=== PATIENT | male | born 1950 | race Caucasian/White ===

== ENCOUNTER 2017-04-17 04:56 | Emergency (ER) | payer MEDICARE ==
[~2017-04-17] VITALS: Ht 170.2 cm; Wt 78.1 kg
[~2017-04-17 04:56] MED LIST: DICL75TA2 PO; LOSA1TAB22 PO
[2017-04-17 04:58] VITALS: BP 178/90
== END 2017-04-17 05:43 | disposition home or self-care (01) ==
LOC: ED 05:35
DX: M54.12 Radiculopathy, cervical region (principal); I10 Essential (primary) hypertension
CPT/HCPCS: 93005; 99283

== ENCOUNTER 2017-04-21 07:40 | Emergency (ER) | payer MEDICARE ==
[~2017-04-21] VITALS: Ht 170.2 cm; Wt 77.2 kg
[2017-04-21 08:25] LABS: BASOPHILS # (AUTO) 0.03 x10^3/uL (0-0.1); BASOPHILS % (AUTO) 0 % (0-1); EOSINOPHILS # (AUTO) 0.04 x10^3/uL (0-0.4); EOSINOPHILS % (AUTO) 1 % (1-7); LYMPHOCYTES # (AUTO) 1.21 x10^3/uL (1-3.4); LYMPHOCYTES % (AUTO) 16 % (22-44); MD NO; MEAN CORPUSCULAR HEMOGLOBIN 30.6 pg (27.5-34.5); MEAN CORPUSCULAR HGB CONC 33.9 g/dL (33.2-36.2); MEAN CORPUSCULAR VOLUME 90.3 fL (81-97); MEAN PLATELET VOLUME 7.6 fL (7.4-10.4); MONOCYTES # (AUTO) 1.12 x10^3/uL (0.2-0.8); MONOCYTES % (AUTO) 14 % (2-9); NEUTROPHILS # (AUTO) 5.38 x10^3/uL (1.8-6.8); NEUTROPHILS % (AUTO) 69 % (42-75); PLATELET COUNT 249 x10^3/uL (130-400); RED BLOOD COUNT 5.06 x10^6/uL (4.38-5.82); RED CELL DISTRIBUTION WIDTH 12.6 % (9.4-14.8)
[2017-04-21] MEDS ORDERED: SODIUM CHLORIDE 0.9% 1,000ML IVBOLUS ONE (08:30)
[2017-04-21] MEDS ORDERED: SODIUM CHLORIDE FLUSH 10ML SYR IVF ONE (08:30)
[2017-04-21 08:35] LABS: ANION GAP 9 mmol/L (5-15); CALCIUM 8.1 mg/dL (8.5-10.1); CHLORIDE 103 mmol/L (98-107); CREATININE 1.66 mg/dL (0.7-1.3)
[2017-04-21 08:36] LABS: ALANINE AMINOTRANSFERASE 30 U/L (12-78)
[2017-04-21 08:38] LABS: ALKALINE PHOSPHATASE 60 U/L (45-117); BILIRUBIN,TOTAL 0.9 mg/dL (0.2-1.0); CREATINE KINASE, TOTAL 52 U/L (39-308); TOTAL PROTEIN 7.6 g/dL (6.4-8.2)
[2017-04-21 09:19] LABS: MICROSCOPIC NOT IND
[2017-04-21 09:20] LABS: CULTURE INDICATED? NO
[2017-04-21] MEDS ORDERED: HYDROcodone/APAP 5/325 TABLET PO ONE (10:00)
[2017-04-21] MEDS ORDERED: IBUPROFEN 200 MG TABLET PO ONE (10:00)
[2017-04-21] MEDS ORDERED: IBUPROFEN 200 MG TABLET ONE (10:01)
[2017-04-21] MEDS ORDERED: HYDROcodone/APAP 5/325 TABLET ONE (10:01)
[2017-04-21 10:36] VITALS: BP 143/95
[2017-04-22] MEDS ORDERED: ONDA4TAB10 PO (23:36)
[2017-04-22] MEDS ORDERED: [UNRECOGNIZED DRUG - OTHER] (23:36)
[2017-04-22] MEDS ORDERED: GABA300C10 PO (23:36)
== END 2017-04-21 10:38 | disposition home or self-care (01) ==
LOC: ED 09:51
DX: B02.33 Zoster keratitis (principal); M79.1 Myalgia; G47.00 Insomnia, unspecified; G43.909 Migraine, unspecified, not intractable, without status migrainosus; I10 Essential (primary) hypertension
CPT/HCPCS: 36415; 80053; 81003; 82550; 85025; 93005; 99285; J7030

== ENCOUNTER 2017-04-22 22:07 | Emergency (ER) | payer MEDICARE ==
[~2017-04-22] VITALS: Ht 170.2 cm; Wt 77.7 kg
[2017-04-22 22:10] VITALS: BP 144/87
[2017-04-22] MEDS ORDERED: ONDA4TAB10 PO (23:36)
[2017-04-22] MEDS ORDERED: [UNRECOGNIZED DRUG - OTHER] (23:36)
[2017-04-22] MEDS ORDERED: GABA300C10 PO (23:36)
[2017-04-22] MEDS ORDERED: PROMETHAZINE 25 MG/ML, 1ML ONE (23:42)
[2017-04-22] MEDS ORDERED: DEXAMETHASONE 4 MG/ML, 1ML ONE (23:42)
[2017-04-22] MEDS ORDERED: DEXAMETHASONE 4 MG TABLET ONE (23:45)
[2017-04-23] MEDS ORDERED: DEXAMETHASONE 4 MG TABLET PO ONE
[2017-04-23] MEDS ORDERED: PROMETHAZINE 25 MG/ML, 1ML IM ONE
== END 2017-04-23 00:23 | disposition home or self-care (01) ==
LOC: ED 23:39
DX: R51 Headache (principal); R11.0 Nausea; B02.9 Zoster without complications; I10 Essential (primary) hypertension
CPT/HCPCS: 96372; 99283; J2550

== ENCOUNTER 2018-01-18 18:34 | Inpatient (IN) | payer MEDICARE ==
[~2018-01-18] VITALS: Ht 172.7 cm; Wt 76.5 kg
[~2018-01-18 18:34] MED LIST changes: +GABA300C10 PO; +ONDA4TAB10 PO; +[UNRECOGNIZED DRUG - OTHER]
[2018-01-18 19:27] LABS: BASOPHILS # (AUTO) 0.03 x10^3/uL (0-0.1); BASOPHILS % (AUTO) 0 % (0-1); EOSINOPHILS # (AUTO) 0.07 x10^3/uL (0-0.4); EOSINOPHILS % (AUTO) 1 % (1-7); LYMPHOCYTES # (AUTO) 1.83 x10^3/uL (1-3.4); LYMPHOCYTES % (AUTO) 30 % (22-44); MD NO; MEAN CORPUSCULAR HEMOGLOBIN 30.7 pg (27.5-34.5); MEAN CORPUSCULAR HGB CONC 34.4 g/dL (33.2-36.2); MEAN CORPUSCULAR VOLUME 89.3 fL (81-97); MEAN PLATELET VOLUME 7.1 fL (7.4-10.4); MONOCYTES # (AUTO) 0.52 x10^3/uL (0.2-0.8); MONOCYTES % (AUTO) 8 % (2-9); NEUTROPHILS # (AUTO) 3.77 x10^3/uL (1.8-6.8); NEUTROPHILS % (AUTO) 61 % (42-75); PLATELET COUNT 278 x10^3/uL (130-400); RED BLOOD COUNT 4.97 x10^6/uL (4.38-5.82); RED CELL DISTRIBUTION WIDTH 12.8 % (9.4-14.8)
[2018-01-18 19:38] LABS: ALANINE AMINOTRANSFERASE 51 U/L (12-78); ALBUMIN 4.2 g/dL (3.4-5.0); ANION GAP 7 mmol/L (5-15); CALCIUM 8.6 mg/dL (8.5-10.1); CHLORIDE 112 mmol/L (98-107); CREATININE 3.18 mg/dL (0.7-1.3)
[2018-01-18 19:40] LABS: ALKALINE PHOSPHATASE 72 U/L (45-117); BILIRUBIN,TOTAL 1.6 mg/dL (0.2-1.0); TOTAL PROTEIN 7.9 g/dL (6.4-8.2)
[2018-01-18] MEDS ORDERED: SODIUM CHLORIDE FLUSH 10ML SYR IVF ONE (20:00)
[2018-01-18] MEDS ORDERED: SODIUM CHLORIDE 0.9% 1,000ML IVBOLUS ONE (20:00)
[2018-01-18 20:59] LABS: CLOSTRIDIUM DIFFICILE ANTIGEN NEGATIVE; CLOSTRIDIUM DIFFICILE TOXIN NEGATIVE (Negative)
[2018-01-18 21:00] VITALS: BP 122/80
[2018-01-18] MEDS ORDERED: ACETAMINOPHEN 325 MG TABLET PO PRN (21:00)
[2018-01-18] MEDS ORDERED: hydrALAzine 20 MG/ML, 1ML IVPush PRN (21:00)
[2018-01-18] MEDS: SODIUM CHLORIDE 0.9% 1,000 ML IV SCH (21:39)
[2018-01-18] MEDS: HEPARIN 5,000 UNITS/ML, 1ML SQ SCH (21:58)
[2018-01-19 01:15] LABS: MICROSCOPIC NOT IND
[2018-01-19 01:17] VITALS: BP 96/55
[2018-01-19 01:19] LABS: CHLORIDE,URINE RANDOM 136 mmol/L; CULTURE INDICATED? NO; POTASSIUM,URINE RANDOM 5 mmol/L; SODIUM,URINE RANDOM 142 mmol/L
[2018-01-19 01:31] LABS: CREATININE,URINE RANDOM 64.5 mg/dL
[2018-01-19] MEDS: SODIUM CHLORIDE 0.9% 1,000 ML IV SCH ×2 (02:20→07:23)
[2018-01-19 05:59] LABS: BASOPHILS # (AUTO) 0.03 x10^3/uL (0-0.1); BASOPHILS % (AUTO) 1 % (0-1); EOSINOPHILS # (AUTO) 0.17 x10^3/uL (0-0.4); EOSINOPHILS % (AUTO) 4 % (1-7); LYMPHOCYTES # (AUTO) 2.01 x10^3/uL (1-3.4); LYMPHOCYTES % (AUTO) 42 % (22-44); MD NO; MEAN CORPUSCULAR HEMOGLOBIN 30.5 pg (27.5-34.5); MEAN CORPUSCULAR HGB CONC 34.4 g/dL (33.2-36.2); MEAN CORPUSCULAR VOLUME 88.6 fL (81-97); MEAN PLATELET VOLUME 7.6 fL (7.4-10.4); MONOCYTES # (AUTO) 0.47 x10^3/uL (0.2-0.8); MONOCYTES % (AUTO) 10 % (2-9); NEUTROPHILS # (AUTO) 2.15 x10^3/uL (1.8-6.8); NEUTROPHILS % (AUTO) 45 % (42-75); PLATELET COUNT 221 x10^3/uL (130-400); RED BLOOD COUNT 4.14 x10^6/uL (4.38-5.82)
[2018-01-19 06:04] LABS: ANION GAP 9 mmol/L (5-15); CALCIUM 7.6 mg/dL (8.5-10.1); CHLORIDE 117 mmol/L (98-107); CREATININE 2.37 mg/dL (0.7-1.3)
[2018-01-19] MEDS: HEPARIN 5,000 UNITS/ML, 1ML SQ SCH ×3 (06:08→22:02)
[2018-01-19] MEDS: POTASSIUM CHLORIDE 20 MEQ TAB.ER.PRT PO SCH ×2 (06:17→10:33)
[2018-01-19 08:30] VITALS: BP 105/73
[2018-01-19 14:00] VITALS: BP 101/64
[2018-01-19 19:53] VITALS: BP 117/73
[2018-01-20 03:03] VITALS: BP 95/62
[2018-01-20 05:15] LABS: BASOPHILS # (AUTO) 0.04 x10^3/uL (0-0.1); BASOPHILS % (AUTO) 1 % (0-1); EOSINOPHILS # (AUTO) 0.29 x10^3/uL (0-0.4); EOSINOPHILS % (AUTO) 6 % (1-7); LYMPHOCYTES # (AUTO) 2.09 x10^3/uL (1-3.4); LYMPHOCYTES % (AUTO) 41 % (22-44); MD NO; MEAN CORPUSCULAR HEMOGLOBIN 31.2 pg (27.5-34.5); MEAN CORPUSCULAR HGB CONC 34.6 g/dL (33.2-36.2); MEAN CORPUSCULAR VOLUME 90.2 fL (81-97); MEAN PLATELET VOLUME 7.8 fL (7.4-10.4); MONOCYTES # (AUTO) 0.42 x10^3/uL (0.2-0.8); MONOCYTES % (AUTO) 8 % (2-9); NEUTROPHILS # (AUTO) 2.27 x10^3/uL (1.8-6.8); NEUTROPHILS % (AUTO) 44 % (42-75); PLATELET COUNT 226 x10^3/uL (130-400); RED BLOOD COUNT 4.26 x10^6/uL (4.38-5.82); RED CELL DISTRIBUTION WIDTH 12.9 % (9.4-14.8)
[2018-01-20 05:25] LABS: ALANINE AMINOTRANSFERASE 64 U/L (12-78); ALBUMIN 3.2 g/dL (3.4-5.0); ANION GAP 9 mmol/L (5-15); CHLORIDE 118 mmol/L (98-107); CREATININE 1.67 mg/dL (0.7-1.3)
[2018-01-20 05:28] LABS: ALKALINE PHOSPHATASE 54 U/L (45-117); BILIRUBIN,TOTAL 1.2 mg/dL (0.2-1.0); TOTAL PROTEIN 6.2 g/dL (6.4-8.2)
[2018-01-20] MEDS: HEPARIN 5,000 UNITS/ML, 1ML SQ SCH ×3 (06:17→21:41)
[2018-01-20 08:26] VITALS: BP 100/61
[2018-01-20] MEDS ORDERED: METOCLOPRAMIDE 5 MG/ML, 2ML IVPush ONE (09:00)
[2018-01-20] MEDS: SODIUM CHLORIDE 0.45% 1,000 ML IV SCH ×2 (09:23→16:48)
[2018-01-20 14:10] VITALS: BP 121/71
[2018-01-20] MEDS ORDERED: SUMATRIPTAN 25 MG TABLET ONE (14:43)
[2018-01-20] MEDS: SUMATRIPTAN 50 MG TABLET PO PRN (14:49)
[2018-01-20 19:24] VITALS: BP 127/72
[2018-01-21 00:53] VITALS: BP 110/72
[2018-01-21] MEDS: SODIUM CHLORIDE 0.45% 1,000 ML IV SCH ×2 (00:55→09:00)
[2018-01-21] MEDS ORDERED: SUMATRIPTAN 25 MG TABLET ONE (02:28)
[2018-01-21] MEDS: SUMATRIPTAN 50 MG TABLET PO PRN (02:30)
[2018-01-21 04:52] LABS: ANION GAP 10 mmol/L (5-15); CALCIUM 8.1 mg/dL (8.5-10.1); CHLORIDE 113 mmol/L (98-107)
[2018-01-21 04:53] LABS: CREATININE 1.66 mg/dL (0.7-1.3)
[2018-01-21] MEDS: HEPARIN 5,000 UNITS/ML, 1ML SQ SCH (05:47)
[2018-01-21 07:36] VITALS: BP 126/80
[2018-01-21] MEDS ORDERED: METR500T PO (12:16)
[2018-01-21] MEDS ORDERED: CIPR500T87 PO (12:16)
== END 2018-01-21 13:45 | disposition home or self-care (01) | DRG 683 ==
LOC: ED 19:47 → EDIP 20:00 → 3NW 20:51 → UNDODISIN 01-21 13:23 → DCLOUNGE 01-21 13:40
PROVIDERS: ADMIT Internal Medicine; ATTEND Internal Medicine
DX: N17.9 Acute kidney failure, unspecified (principal); E87.0 Hyperosmolality and hypernatremia; E87.2 Acidosis; E86.0 Dehydration; R19.7 Diarrhea, unspecified; N18.9 Chronic kidney disease, unspecified; G43.909 Migraine, unspecified, not intractable, without status migrainosus; I12.9 Hypertensive chronic kidney disease with stage 1 through stage 4 chronic kidney disease, or unspecified chronic kidney disease; M54.12 Radiculopathy, cervical region; E87.6 Hypokalemia
CPT/HCPCS: 36415; 80048; 80053; 81003; 82436; 82438; 82570; 83735; 83935; 84100; 84133; 84300; 84302; 84999; 85025; 87046; 87205; 87324; 87427; 89055; 96360; 99285; G0378; J1644; J2765; J7030